=== PATIENT | male | born 1950 | race Caucasian/White ===

== ENCOUNTER 2018-03-07 23:02 | Emergency (ER) | payer OTHER ==
[~2018-03-07] VITALS: Ht 175.3 cm; Wt 115.2 kg
[2018-03-07] MEDS ORDERED: TELMISARTAN40 MG PO (23:13)
[2018-03-07] MEDS ORDERED: MULTI-VITAMIN1 EACH PO (23:13)
[2018-03-07] MEDS ORDERED: VITAMIN D2000 UNIT PO (23:14)
[2018-03-07] MEDS ORDERED: ALBUTEROL1.25 MG/3 INH (23:15)
[2018-03-07] MEDS ORDERED: VENTOLIN HFA18 GM INH (23:15)
[2018-03-07] MEDS ORDERED: IPRATROPIUM BRO15 ML NAS (23:16)
[2018-03-08] MEDS ORDERED: PREDNISONE20 MG PO (01:33)
== END 2018-03-08 02:02 | disposition home or self-care (01) ==
LOC: ED 23:02
DX: J45.909 Unspecified asthma, uncomplicated (principal); Z88.0 Allergy status to penicillin; Z79.899 Other long term (current) drug therapy
CPT/HCPCS: 71046; 94640; 99283; J7512